=== PATIENT | male | born 1935 | race Caucasian/White ===

== ENCOUNTER → 2016-08-16 | Outpatient (CLI) | payer MEDICARE ==
[~2016-08-16] MED LIST: ACET-1256 PO; AMIO200T4 PO; APR25 PO; ASPI325T39 PO; ATOR-24 PO; BACL10TA PO; CARB-157 PO; CHOL200010 PO; DEXT30TA7 PO; DOCU100C31 PO; FERR1TAB13 PO; FLUT0.15 NAE; GLIP2.5T11 PO; HYDR-4717 PO; ISOS120T5 PO; LEVO100T7 PO; LOSA50TA54 PO; METO25TA3 PO; NTRGSL/4 UT; NXM/40 PO; ONDA4TAB65 PO; POLY335019 PO; SALI0.6510; TRAM-10 PO; ZNTT/150 PO
[2016-08-16 08:22] LABS: ESTIMATED AVERAGE GLUCOSE 154 mg/dl; HA1C FLAG Normal (Normal)
== END ==
LOC: C.LABCC 07:48
PROVIDERS: ATTEND Internal Medicine
DX: E11.40 Type 2 diabetes mellitus with diabetic neuropathy, unspecified (principal)